=== PATIENT | female | born 2005 | race Caucasian/White ===

== ENCOUNTER 2024-11-11 10:40 | Outpatient (CLI) | payer OTHER, SELFPAY | END 2024-11-11 10:41 | disposition home or self-care (01) | LOC: KYNREF 10:41 | PROVIDERS: PCP Nurse Practitioner Family; Visit Provider Nurse Practitioner Family | DX: Z11.1 Encounter for screening for respiratory tuberculosis (principal) | CPT/HCPCS: 86480 ==

== ENCOUNTER 2024-11-15 18:19 | Outpatient (CLI) | payer OTHER, SELFPAY | END 2024-11-15 18:20 | disposition home or self-care (01) | LOC: KYNREF 18:19 | PROVIDERS: PCP Nurse Practitioner Family; Visit Provider Nurse Practitioner Family | DX: Z12.4 Encounter for screening for malignant neoplasm of cervix (principal) | CPT/HCPCS: 87624; 87625; 88141; 88142 ==